=== PATIENT | female | born 1950 | race Caucasian/White ===

== ENCOUNTER → 2024-02-26 06:27 | Day surgery (SDC) | payer OTHER, SELFPAY | LOC: GI 06:27 | PROVIDERS: ATTENDING PHYSICIAN Specialist | DX: Z12.11 Encounter for screening for malignant neoplasm of colon (principal); Z86.010 Personal history of colon polyps; K57.30 Diverticulosis of large intestine without perforation or abscess without bleeding; K55.20 Angiodysplasia of colon without hemorrhage; K74.60 Unspecified cirrhosis of liver; D12.5 Benign neoplasm of sigmoid colon; Z80.0 Family history of malignant neoplasm of digestive organs; Z98.0 Intestinal bypass and anastomosis status | CPT/HCPCS: 45380; 43235; 88305 ==

== ENCOUNTER → 2024-03-11 19:00 | Outpatient (REF) | payer OTHER, SELFPAY | LOC: MRI 3T 19:00 | PROVIDERS: ATTENDING PHYSICIAN Specialist; FAMILY PHYSICIAN Physician Assistant | DX: K74.60 Unspecified cirrhosis of liver (principal) | CPT/HCPCS: 74183; A9581 ==

== ENCOUNTER → 2024-04-02 10:51 | Outpatient (REF) | payer OTHER, SELFPAY | LOC: WDC 10:51 | PROVIDERS: ATTENDING PHYSICIAN Physician Assistant | DX: Z12.31 Encounter for screening mammogram for malignant neoplasm of breast (principal) | CPT/HCPCS: 77063; 77067 ==

== ENCOUNTER 2025-01-01 09:13 | Inpatient (IN) | payer OTHER, SELFPAY ==
[2025-01-01 03:54] VITALS: BP 143/125
[2025-01-01 03:56] VITALS: BP 143/125; BMI 33.7
[2025-01-01 04:33] LABS: % Basophils 0.3 % (0-2); % Immature Granulocytes 0.3 % (0-0.5); % Lymphocytes 13.4 % (20.5-51.1); % Monocytes 5.6 % (1.7-9.3); % Neutrophils 79.4 % (42.2-75.2); Absolute Eosinophils 0.1 10^3/uL (0-0.7); Absolute Lymphocytes 1.2 10^3/uL (1.2-3.4); Absolute Monocytes 0.5 10^3/uL (0.1-0.6); Absolute Neutrophils 7.2 10^3/uL (1.4-6.5); Hematocrit 45.6 % (37.0-47.0); Hemoglobin 15.6 g/dL (12.0-16.0); Mean Corp Hgb Conc. 34.2 g/dL (33.0-37.0); Mean Corpuscular Hgb 29.7 pg (27.0-31.0); Mean Corpuscular Volume 86.7 fL (81.0-99.0); Mean Platelet Volume 10.1 fL (7.4-10.4); Nucleated Red Blood Cells % 0 %; Platelet Count 127 10^3/uL (130-400); Red Blood Cell Count 5.26 10^6/uL (4.20-5.40); Red Cell Dist. Width 14.4 % (11.5-14.5); White Blood Cell Count 9.1 10^3/uL (4.8-10.8)
[2025-01-01 04:56] LABS: COVID-19 Antigen Negative (Negative)
[2025-01-01 04:59] LABS: ALT (SGPT) 19 U/L (0-35); AST (SGOT) 24 U/L (14-36); Albumin 4.4 g/dl (3.5-5.0); Alkaline Phosphatase 127 U/L (38-126); Blood Urea Nitrogen 15 mg/dl (7-17); Calcium 9.9 mg/dl (8.4-10.2); Carbon Dioxide 21 mmol/L (22-30); Chloride 107 mmol/L (98-107); Estimated Creatinine Clearance 60 ml/min; Glucose 138 mg/dl (70-99); Potassium 3.5 mmol/L (3.5-5.1); Sodium 140 mmol/L (135-145); Total Bilirubin 1.5 mg/dl (0.2-1.3); Total Protein 7.2 g/dl (6.3-8.2); eGFR > 60.00
[2025-01-01 05:01] VITALS: BP 181/72
[2025-01-01 06:00] VITALS: BP 171/56
[2025-01-01] MEDS: ZOFRAN 4 MG IV ×2 (06:29→13:42)
[2025-01-01] MEDS: NSS 1000 IV (06:29)
[2025-01-01] MEDS: TORADOL 15 MG IV ×2 (06:29→13:42)
--- NOTE | 2025-01-01 06:44 | ED.GENMED ---
History of Present Illness
General
Chief Complaint: Abdominal Pain
Source: patient and family
Exam Limitations: none
Time Seen by Provider: 01/01/25 05:51
History of Present Illness
History of Present Illness:
74-year-old female left-sided cramping with nausea and vomiting. Started about 5 days ago. Then seem to resolve and recur overnight. No dysuria or frequency no change in bowel movements no fever. Symptoms are minimal in nature at this time. No
one else is ill at home.
Past History
Past History
ED Past Medical History: Cancer (Skin and bladder CA), GERD, HTN, Hypercholesterolemia, NIDDM, Hypothyroidism and Other (Osteoarthritis, IBS, right hemicolectomy for polyps, CPAP for sleep apnea, Diverticulitis)
ED Past Surgical History: Bowel resection (Hemicolectomy), Cholecystectomy, Gynecological (Ovarian cyst, Total abd hysterectomy) and Urological
Social History
Tobacco: Former smoker
Alcohol: Former
Drug: None
Personal:
Living: with family
Employment: Retired
Family History
Family History: CAD and Other
Review of Systems
Review of Systems
All Other Systems: Not applicable
Constitutional: Denies fever or chills
Respiratory: Reports no symptoms
Cardiac: Reports no symptoms
Phy Exam
Physical Exam
Physical Exam:
GENERAL: Alert and oriented in no apparent distress
EYE: Orbits normal.
NECK: Supple, no significant adenopathy.
ENT: Pharynx without erythema
CARDIAC: Regular rate and rhythm without any obvious murmurs.
LUNGS: Clear breath sounds,normal
ABDOMEN: Soft, bowel sounds present. No distention. Vague mild left-sided tenderness not localized to the upper or lower quadrants. Hernia
NEUROLOGICAL: Alert and oriented , grossly non-focal
SKIN: Warm and dry, no rash or lesion, no discoloration, skin intact.
MUSCULOSKELETAL: No edema,no deformity.Good color
PSYCH: Normal and appropriate interaction.
Course
Orders/Labs/Results
Orders:
Orders
01/01/25 04:19
Complete Blood Count/With Diff Urgent
Comprehensive Metabolic Panel Urgent
Lipase Urgent
Comment: ADD ON
01/01/25 04:21
COVID-19 Antigen Urgent
Source: Nasal Swab
Influenza A+B Rapid Molecular Urgent
VANESSA Source: Nasal Swab
Specimen Description:
01/01/25 05:56
IV Insert/Care/Rem.- Treatment PRN
0.9% Sodium Chloride 500 ml [Nss] 500 ml IV BOLUS
Ondansetron Injectable [Zofran] 4 mg IV NOW STA
01/01/25 06:03
Add On- LAB Urgent
Tests Added?: lipase
IV Insert/Care/Rem.- Treatment PRN
0.9% Sodium Chloride 1000 ml [Nss] 1,000 ml IV BOLUS
Ketorolac [Toradol] 15 mg IV NOW STA
01/01/25 06:04
CT Abd/pel Without Iv Or Oral Urgent
Comment:
Reason For Exam: Sudden right lower quadrant/right flank pain
01/01/25 06:28
Urinalysis Reflex To Culture Urgent
Date Specimen was Collected: 01/01/25
Time Specimen was Collected: 06:23
Abnormal Lab Results
01/01/25
04:19
Plt Count 127 L 10^3/uL
(130-400)
Absolute Neuts (auto) 7.2 H 10^3/uL
(1.4-6.5)
Neutrophils % 79.4 H %
(42.2-75.2)
Lymphocytes % 13.4 L %
(20.5-51.1)
Carbon Dioxide 21 L mmol/L
(22-30)
Glucose 138 H mg/dl
(70-99)
Total Bilirubin 1.5 H mg/dl
(0.2-1.3)
Alkaline Phosphatase 127 H U/L
(38-126)
01/01/25 04:19
01/01/25 04:19
Vital Signs
Initial and Last Documented VS:
Initial Vital Signs
BP
143/125
01/01/25 03:54
Last Documented Vital Signs
Temp Pulse Resp BP Pulse Ox
98.5 F 62 12 171/56 97
01/01/25 03:56 01/01/25 06:00 01/01/25 06:00 01/01/25 06:00 01/01/25 06:00
MDM/Problems Addressed
Differential Diagnosis Includes:
Vague left-sided discomfort with nausea and vomiting. Differential would include enteritis, food poisoning, diverticulitis, kidney stone. Workup in progress.
*Radiology
Radiology exam reviewed: radiology read reviewed (Early SBO transition point)
*Pulse Oximetry
Patient hypoxic: no
*Critical Care Note
Total Time (30-74mins, 75-104mins- exclusive of procedures): Not Applicable
Data Reviewed
Review of Other/Old Records Reveals: Labs and Testing
Update Note
Update Note:
Patient will be admitted for early SBO. Hospitalist and general surgery contacted
ED Attending Note
-
Portions of this chart may have been created with voice recognition software.� Occasional wrong word or��sound alike� substitutions may have occurred due to the inherent limitations of voice recognition software.
Discharge Plan
Departure
Patient Disposition: Admit
Date of Disposition: 01/01/25
Time of Disposition: 07:12
Presentation/result/management discussed w/ accepting MD/DO: General surgery
Discharge Problem:
SBO
Prescriptions:
No Action
rosuvastatin 5 MG tablet
5 mg PO QPM
amlodipine 5 mg tablet
5 mg PO DAILY
levothyroxine 88 mcg tablet
88 mcg PO DAILY
losartan 100 mg tablet
100 mg PO DAILY
ondansetron 4 mg tablet,disintegrating
4 mg PO Q8H PRN (Reason: nausea/vomiting)
acetaminophen 500 mg Tablet
1,000 mg PO Q6H PRN (Reason: mild pain)
fluoxetine 40 mg Capsule
40 mg PO DAILY
Referrals:
UNKNOWN - PT DOES,NOT KNOW [Family Provider] -
Interventions
Interventions:
*Risk Screen - Suicide Last Done: 01/01/25 03:56
*General Assessment Last Done: 01/01/25 03:56
*Neglect/Abuse Screening Last Done: 01/01/25 03:56
*ED COVID-19 Vaccine History Last Done: 01/01/25 04:10
JG-Bqqnfx-Twqlakcyka Assessment Last Done: 01/01/25 04:11
Discharge Date and Time
Print Language: YI
[2025-01-01 07:36] LABS: Lipase 145 U/L (23-300)
[2025-01-01 07:45] LABS: Urine Albumin 2+ (Neg - Trace); Urine Bilirubin Negative (Negative); Urine Character Clear (Clear); Urine Color Yellow; Urine Glucose Negative (Negative); Urine Ketone Negative (Negative); Urine Leukocyte Negative (Negative); Urine Nitrite Negative (Negative); Urine Occult Blood Negative (Negative); Urine Specific Gravity 1.015 (<1.030); Urine Urobilinogen 1+ (Neg - 1+)
[2025-01-01 08:11] LABS: Urine Urothelial Cell 0-2 /LPF (FEW)
[2025-01-01 08:12] LABS: Urine Bacteria Few (Negative); Urine Red Blood Cell 0-2 /HPF (0-2)
--- NOTE | 2025-01-01 09:00 | HPS.HSE ---
Addendum entered and electronically signed by Harsh Gibson MD 01/01/25 21:53:
Attending Addendum-
I performed a history and physical exam of the patient and discussed his management with the resident. I reviewed the resident's note and agree with the documented findings and plan of care CC/HPI- Came to ED secondary to N/V and abdominal pain.
Doesn't remember when she passed gas. States her last BM was possibly loose and may have had some blood 'a couple days ago.' Seen with ALICIA Rubin. Patient is pleasant but history provided is variable. Complains of LUQ abd pain non radiating. No urinary
sxs. No fevers chills No N/V. Full 12 point ROS reviewed and negative except as documented Exam- vitals reviewed in EMR GEN-NAD Heart RRR no M/R/G lungs clear abd distended high pitched BS TTP LUQ no rebound or guarding LE no edema Neuro AAO x 3
Plan:
# SBO
- h/o MAXWELL and right hemicolectomy
- c/s surgery
- NPO, start IVF
- NG tube for decompression if needed
- CT 01/01-multiple prominent loops of bowel within the right abdomen with adjacent mesenteric stranding and an apparent transition point. early/partial bowel obstruction.
Cirrhosis with small volume perihepatic free fluid. There is splenomegaly with collateral vessels in the right hemiabdomen consistent with portal hypertension.
- repeat BMP in am
# HTN- cont amlodipine and losartan
# BALTAZAR- cont CPAP
# Hypothyroidism- cont levothyroxine
# HLD- cont crestor
# Depression- cont fluoxetine
Dispo-From [facility]
Code DNR
ACP
Patient consented to discuss, was with ALICIA Rubin, time spent explanation of advance directives, changes in health status, patient�s health care wishes if the patient becomes unable to make health decisions, goals of care, code status, and prognosis-
16 minutes
Time spent coordinating care, review of plan of care with resident, personally reviewed previous records in EMR, med rec, labs, radiology, d/w nursing, family total time documented is exclusive of any additional time listed that was spent in advance
care planning discussion -�75 minutes
Original Note:
Family Physician
-
Family Physician: JAIR Tom
Chief Complaint
-
Abdominal cramps and vomiting
History of Present Illness
Patient is a 74-year-old female who lives independently in [place]. Reports having painful cramps in left lower quadrant on Sunday followed by a forceful vomiting. Reports that she could see blood in the vomit which she said looks like corcoran
tomatoes. Granddaughter, Caryn, mentions she typically does not have a good appetite but on Sunday she had been hearing more than she would usually. Food was prepared at her living center and was not from outside. Patient symptoms improved over
the next couple days however last night she started experiencing the painful left lower quadrant cramps again and was also vomiting (this time not bloody) also reports about 3-4 times of normal consistency normal volume bowel movements yesterday.
Stool was not bloody or black. Mentions does not remember when was the last time she passed gas but it must be a couple days. Denies any fevers. Denies being constipated before symptoms started.
Mentions chronic dysuria due to recurrent UTIs. On arrival, vital signs were stable. No leukocytosis. electrolytes normal. COVID-negative. Prelim report of abdominal CAT scan shows signs of early small bowel obstruction.
He does have a history of right hemicolectomy in 2000 and also prior total hysterectomy (more than 20 years ago).
Has a history of bladder cancer status post chemo (last chemo being about 3 years ago).
Medical History
Past Medical History
Past Medical History: Reports Cancer (Skin and bladder, flat colon Adenoma), GERD, HTN, Hypercholesterolemia, Hypothyroidism and NIDDM
Additional Past Medical History:
Cirrhosis / LANE
BALTAZAR on CPAP
Functional Diarrhea
Past Surgical History: Reports Bowel Resection (Right hemicolectomy), Cholecystectomy, Gynocological (Total hysterectomy) and Orthopedic (Lumbar laminectomy)
Social History
Tobacco: Former Smoker
Alcohol: Former
Drug: None
Personal:
Living: Alone (At [place])
Employment: Retired
Family History
Family History: CAD and Other (Colon cancer)
Allergies / Home Medications
Allergies reflects when Allergies were last updated in [employer].
Home Medications with original date entered in [employer]
Allergy/Medication List:
Allergies
Allergy/AdvReac Type Severity Reaction Status Date / Time
desipramine Allergy chest Verified 01/23/23 20:12
pain,sweats,shakes
gabapentin Allergy balance Verified 01/23/23 20:12
issues/dizziness
oxycodone Allergy itching,insomnia,out Verified 01/23/23 20:12
of body
feeling
propoxyphene Allergy Itching Verified 01/23/23 20:12
Home Medications
rosuvastatin 5 mg tablet 5 mg PO QPM High cholesterol 10/02/19
acetaminophen 500 mg tablet 1,000 mg PO Q6H PRN mild pain 01/23/23
amlodipine 5 mg tablet 5 mg PO DAILY Blood pressure 01/23/23
levothyroxine 88 mcg tablet 88 mcg PO DAILY Thyroid 01/23/23
losartan 100 mg tablet 100 mg PO DAILY Blood pressure 01/23/23
ondansetron 4 mg disintegrating tablet 4 mg PO Q8H PRN nausea/vomiting 01/23/23
fluoxetine 40 mg capsule 40 mg PO DAILY 01/01/25
Review of Systems
-
History Source: Patient
A 12 point ROS was completed and negative except as noted: Yes
Constitutional: Reports See HPI
EENT: Reports See HPI
Respiratory: Reports See HPI
Cardiac: Reports See HPI
Abdomen/GI: Reports See HPI
: Reports See HPI
Musculoskeletal: Reports See HPI
Neurological: Reports See HPI
Psych: Reports No Symptoms
Physical Exam
Vital Signs
Vital Signs
Temp Pulse Resp BP Pulse Ox
98.5 F 60 11 171/56 94
01/01/25 03:56 01/01/25 07:00 01/01/25 07:00 01/01/25 06:00 01/01/25 07:00
Physical Exam
General: Well Developed, No Apparent Distress and Conversant
HEENT: Moist mucous membranes
Respiratory: Clear
Cardiac: S1/S2 and Regular Rhythm
GI: Soft, Tender (Mild left lower quadrant tenderness, no rebound, no guarding), Distended (Mildly distended) and Other (Hypoactive bowel sounds, scar from prior hysterectomy and hemicolectomy)
Musculoskeletal: No Clubbing, No Cyanosis and No Edema
Skin: Warm and Dry
Neuro: Awake, Alert, Oriented and AO x 3
Psych: Calm
Laboratory Results
-
01/01/25 04:19
01/01/25 04:19
Laboratory Results
Total Bilirubin 1.5 mg/dl (0.2-1.3) H 01/01/25 04:19
AST 24 U/L (14-36) 01/01/25 04:19
ALT 19 U/L (0-35) 01/01/25 04:19
Alkaline Phosphatase 127 U/L (38-126) H 01/01/25 04:19
Lipase 145 U/L (23-300) 01/01/25 04:19
Impression/Plan
-
74yo F with PSH of total hysterectomy and right hemicolectomy (2000), who presents with nausea/vomiting/ abdominal cramps. CT suggest small bowel obstruction.
#Small bowel obstruction
NPO
Zofran as needed
Toradol PRN for pain
Monitor CBC, BMP
Monitor vitals signs
Watch for worsening of abdominal pain or any guarding
Ringer lactate @120cc/hr
No need for antibiotics at this time
General Surgery consulted
#BALTAZAR requiring home CPAP
Patient's son will bring home CPAP machine later in the day
#Essential HTN
Cont home amlodipine
#Diet-controlled Diabetes
NPO for now
Carb-controlled once PO
Accuchecks
#Hypercholesterolemia
Cont home rosuvastatin
#Hypothyroidism
Cont Levothyroxine
#Anxiety/Depression
Cont home fluoxetine
#DVT prophylaxis:
Lovenox 40
CODE Status
DNR
[2025-01-01] MEDS: LR 1000 IV ×2 (13:42→22:15)
--- NOTE | 2025-01-01 15:21 | CON.GS ---
Medical History
-
Chief Complaint: Abdominal pain, nausea, emesis
History of Present Illness:
Patient is a 74 yo F with a PMH of depression/anxiety, hypothyroidism, HTN, HLD, obesity, BALTAZAR, cirrhosis (follows with Dr. Bedoya), s/p laparoscopic cholecystectomy, s/p open RIGHT hemicolectomy, and s/p open MAXWELL with BLSO. Ms. Camarillo states that on
Sunday she developed severe abdominal pain with associated nausea, vomiting, and diarrhea. Her symptoms have waxed and waned over the past week, however, recurred over the past 24 hours prompting presentation to the ED. She last passed flatus and
had a bowel movement yesterday. Her last episode of emesis was yesterday. Currently she denies any nausea. Currently she states that her abdominal pain is somewhat improved though not resolved. She denies any prior episodes or issues as a
relates to bowel obstructions. No fevers or chills.
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 She denies any prior issues with ascites or esophageal varices. Patient
Past Medical History
Past Medical History: Cancer (Skin and bladder), GERD, HTN, Hypercholesterolemia, Hypothyroidism, NIDDM and Psychiatric (Depression/anxiety)
Past Surgical History: Bowel Resection (RIGHT colectomy), Cholecystectomy and Gynecological (MAXWELL, BLSO)
Social History
Tobacco: Non-Smoker
Alcohol: Former
Drug: None
Living: With Family
Employment: Retired
Family History
Family History: Reviewed & Not Pertinent
Allergies / Home Medications
Allergy/AdvReac Type Severity Reaction Status Date / Time
desipramine Allergy chest Verified 01/23/23 20:12
pain,sweats,shakes
gabapentin Allergy balance Verified 01/23/23 20:12
issues/dizziness
oxycodone Allergy itching,insomnia,out Verified 01/23/23 20:12
of body
feeling
propoxyphene Allergy Itching Verified 01/23/23 20:12
�Medication �Instructions �Recorded �Confirmed �Type
rosuvastatin 5 mg tablet 5 mg PO QPM High cholesterol 10/02/19 01/01/25 History
acetaminophen 500 mg tablet 1,000 mg PO Q6H PRN mild pain 01/23/23 01/01/25 History
amlodipine 5 mg tablet 5 mg PO DAILY Blood pressure 01/23/23 01/01/25 History
levothyroxine 88 mcg tablet 88 mcg PO DAILY Thyroid 01/23/23 01/01/25 History
losartan 100 mg tablet 100 mg PO DAILY Blood pressure 01/23/23 01/01/25 History
ondansetron 4 mg disintegrating 4 mg PO Q8H PRN nausea/vomiting 01/23/23 01/01/25 History
tablet
fluoxetine 40 mg capsule 40 mg PO DAILY Mental Health 01/01/25 01/01/25 History
Review of Systems
-
A 10 point review of systems was completed, and was negative except as per HPI.
Physical Exam
Vital Signs
Temp Pulse Resp BP Pulse Ox
98.5 F 59 18 171/56 99
01/01/25 03:56 01/01/25 14:00 01/01/25 14:00 01/01/25 06:00 01/01/25 14:00
12/31/24 01/01/25 01/02/25
06:59 06:59 06:59
Actual Weight 91.8 kg
Body Mass Index (BMI) 33.7
Lab Results
01/01/25 04:19
01/01/25 04:19
WBC 9.1 10^3/uL (4.8-10.8) 01/01/25 04:19
Hgb 15.6 g/dL (12.0-16.0) 01/01/25 04:19
Hct 45.6 % (37.0-47.0) 01/01/25 04:19
Plt Count 127 10^3/uL (130-400) L 01/01/25 04:19
Abs Immat Gran (auto) 0.0 10^3/uL (0-0.05) 01/01/25 04:19
Neutrophils % 79.4 % (42.2-75.2) H 01/01/25 04:19
Physical Exam
General: Well Developed, Well Nourished and No Apparent Distress
Respiratory: Non Labored Respirations
Cardiac: Regular Rhythm
GI: Soft, Tender (RIGHT mid abdomen), Distended (Difficult to fully assess with obesity, mild tymapny), Obese and Other (Non-peritoneal)
Musculoskeletal: No Edema
Skin: Warm and Dry
Neuro: Nonfocal/Grossly Intact
Data Reviewed
-
CT Scan: Image Personally Visualized and interpreted and Report Reviewed by me
Labs: Labs Reviewed by me
Old Records: Reviewed
Assessment / Plan
-
Patient is a 74 yo F p/w SBO likely secondary to adhesions
The natural history and pathophysiology of bowel obstructions was reviewed. CT scan imaging was reviewed. No clinical or radiographic concern for bowel ischemia or perforation. No evidence of pneumatosis, significant bowel wall thickening, or
free air. Patient is at increased risk for operative complications given her cirrhosis and morbid obesity/underlying general medical condition. Recommend medical management with bowel rest and NGT decompression as needed for any further episodes
of nausea, vomiting, or worsening abdominal pain. Would consider contrasted study if no improvement over the next 24 to 48 hours. All questions answered.
-- NPO, IVF
-- NGT decompression if any further nausea or emesis
-- Consider SBFT tomorrow if symptoms not improved
-- OOB/ambulate, correct lytes, minimize narcotics
[2025-01-01 17:40] VITALS: BP 161/75
[2025-01-01 17:41] VITALS: BMI 32.8
[2025-01-01] MEDS: CRESTOR 5 MG PO (18:27)
[2025-01-01] MEDS: LOVENOX 40 MG SC (19:19)
[2025-01-01 23:36] VITALS: BP 168/70
[2025-01-02] MEDS: LR 1000 IV (06:15)
[2025-01-02] MEDS: SYNTHROID 88 MCG PO (06:19)
[2025-01-02 07:15] LABS: Hematocrit 38.5 % (37.0-47.0); Hemoglobin 12.8 g/dL (12.0-16.0); Mean Corp Hgb Conc. 33.2 g/dL (33.0-37.0); Mean Corpuscular Hgb 29.3 pg (27.0-31.0); Mean Corpuscular Volume 88.1 fL (81.0-99.0); Mean Platelet Volume 10.7 fL (7.4-10.4); Platelet Count 114 10^3/uL (130-400); Red Blood Cell Count 4.37 10^6/uL (4.20-5.40); Red Cell Dist. Width 14.3 % (11.5-14.5); White Blood Cell Count 6.8 10^3/uL (4.8-10.8)
[2025-01-02 07:16] LABS: % Basophils 0.7 % (0-2); % Eosinophils 1.2 % (0-6); % Immature Granulocytes 0.3 % (0-0.5); % Lymphocytes 27.6 % (20.5-51.1); % Monocytes 7.8 % (1.7-9.3); % Neutrophils 62.4 % (42.2-75.2); Absolute Basophils 0.1 10^3/uL (0-0.2); Absolute Eosinophils 0.1 10^3/uL (0-0.7); Absolute Lymphocytes 1.9 10^3/uL (1.2-3.4); Absolute Monocytes 0.5 10^3/uL (0.1-0.6); Absolute Neutrophils 4.3 10^3/uL (1.4-6.5); Nucleated Red Blood Cells % 0 %
[2025-01-02 07:24] LABS: ALT (SGPT) 18 U/L (0-35); AST (SGOT) 27 U/L (14-36); Albumin 3.4 g/dl (3.5-5.0); Alkaline Phosphatase 103 U/L (38-126); Blood Urea Nitrogen 14 mg/dl (7-17); Calcium 8.9 mg/dl (8.4-10.2); Carbon Dioxide 24 mmol/L (22-30); Chloride 108 mmol/L (98-107); Estimated Creatinine Clearance 53 ml/min; Glucose 99 mg/dl (70-99); Magnesium 2.1 mg/dl (1.6-2.3); Potassium 3.5 mmol/L (3.5-5.1); Sodium 138 mmol/L (135-145); Total Bilirubin 1.5 mg/dl (0.2-1.3); Total Protein 5.7 g/dl (6.3-8.2); eGFR 58.39
[2025-01-02 07:40] VITALS: BP 137/53
[2025-01-02] MEDS: PROZAC 40 MG PO (08:21)
[2025-01-02] MEDS: NORVASC 10 MG PO (08:23)
[2025-01-02] MEDS: COZAAR 100 MG PO (08:23)
--- NOTE | 2025-01-02 08:24 | W.PN.HOSP.TC ---
Addendum entered and electronically signed by Harsh Gibson MD 01/02/25 22:01:
Attending Addendum-
I performed a history and physical exam of the patient and discussed his management with the resident. I reviewed the resident's note and agree with the documented findings and plan of care Sub-passed gas and liquid stools. feels great. denies abd
pain N/V. Full 12 point ROS reviewed and negative except as documented Exam- vitals reviewed in EMR GEN-NAD Heart RRR no M/R/G lungs clear abd soft NT ND pos BS no rebound or guarding LE no edema Neuro AAO x 3
Plan:
# Adhesive partial SBO
- resolved
- h/o MAXWELL and right hemicolectomy
- surgery-input appreciated- ok for DC if manny PO
- CT 01/01-multiple prominent loops of bowel within the right abdomen with adjacent mesenteric stranding and an apparent transition point. early/partial bowel obstruction.
Cirrhosis with small volume perihepatic free fluid. There is splenomegaly with collateral vessels in the right hemiabdomen consistent with portal hypertension.
- manny clears advance diet and DC home if manny
# HTN- cont amlodipine and losartan
# BALTAZAR- cont CPAP
# Hypothyroidism- cont levothyroxine
# HLD- cont crestor
# Depression- cont fluoxetine
Dispo-From [facility]
Code DNR
Time spent coordinating care, DC planning, review of DC plan of care with resident, transition of care, review of records, med rec/scripts sent electronically, consults, notes, d/w consultants, nursing, family, and CM�33 mins
Original Note:
Today's Communication/Plan
-
Advance diet as tolerated
If she can tolerate regular diet, can be discharged later today
Assessment / Plan
Assessment / Plan
74yo F with PSH of total hysterectomy and right hemicolectomy (2000), who presents with nausea/vomiting/ abdominal cramps from 4 days before admission.
Abdominal/pelvis CT (01/02)
There are multiple prominent loops of bowel within the right abdomen with adjacent mesenteric stranding and an apparent transition point. Consolation of findings are favored to represent early/partial bowel obstruction.
Cirrhosis with small volume perihepatic free fluid. There is splenomegaly with collateral vessels in the right hemiabdomen consistent with portal hypertension.
#Small bowel obstruction
Currently on clear liquid-can advance diet as tolerated
Receiving LR @120cc/hr
No need for antibiotics at this time
Appreciate General Surgery-will continue to follow, ADAT
Zofran as needed-Toradol PRN for abdominal pain
Daily CBC, BMP
Encourage OOB
Patient is passing gas and has bowel movements -if able to tolerate regular diet, she can be discharged later today
#BALTAZAR requiring home CPAP
Well-managed with home CPAP
#Essential HTN
-Blood pressures on the higher side
-Will increase Norvasc to 10
#Diet-controlled Diabetes
Carb-controlled once on regular diet
Continue Accuchecks
#Hypercholesterolemia
Cont home rosuvastatin
#Hypothyroidism
Cont Levothyroxine
#Anxiety/Depression
Cont home fluoxetine
#DVT prophylaxis:
Lovenox 40
CODE Status
DNR
Anticipated Discharge: Today
Subjective/Interval History
-
Date of Service: January 02, 2025
Mentions had at least 3 large loose bowel movements during the past 24 hours. Denies any nausea or vomiting since admission. Is able to tolerate clear liquid.
Has been passing gas. Does not complain of any abdominal cramps/pain.
Objective Data
-
Labs:
Laboratory Results
01/02/25
06:14
WBC 6.8
Hgb 12.8
Hct 38.5
Plt Count 114 L
Sodium 138
Potassium 3.5
Chloride 108 H
Carbon Dioxide 24
BUN 14
Creatinine 1.0
Glucose 99
Calcium 8.9
Total Bilirubin 1.5 H
AST 27
ALT 18
Alkaline Phosphatase 103
Vital Signs:
Vital Signs
Temp Pulse Resp BP Pulse Ox
97.9 F 56 16 137/53 96
01/02/25 07:40 01/02/25 07:40 01/02/25 07:40 01/02/25 07:40 01/02/25 07:40
Review of Systems
-
History Source: Patient
Constitutional: Reports No Symptoms
EENT: Reports No Symptoms Reported
Respiratory: Reports No Symptoms
Cardiac: Reports No Symptoms
Abdomen/GI: Denies Abdominal Pain, Nausea or Vomiting
Genitourinary: Reports No Symptoms
Musculoskeletal: Reports No Symptoms
Skin: Reports No Symptoms
Neuro: Reports No Symptoms
Physical Exam
-
General: Well Developed, Well Nourished, No Apparent Distress, Comfortable, Conversant and Obese; Negative Respiratory Distress
HEENT: Normocephalic, Atraumatic, Nose Appears Normal and Ears Appear Normal; Negative Oxygen
Respiratory: Clear to Auscultation and Non Labored Respirations; Negative Accessory Resp Muscle Use
Cardiac: Regular Rhythm and S1/S2
GI: Soft, Nontender, Normal Bowel Sounds, Distended (Mild distension) and Other (No rebound, no guarding)
Genito-urinary: No Costovertebral Tender
Musculoskeletal: No Clubbing, No Cyanosis and No Edema
Skin: Warm and Dry
Neuro: Awake, Alert, Oriented and AO x 3
Psych: Calm and Intact Judgement/Insight
--- NOTE | 2025-01-02 09:49 | W.PN.GS2 ---
Addendum entered and electronically signed by Mario Quintanilla MD 01/02/25 14:27:
To clarify for CDI purposes this is most likely an adhesive partial small bowel obstruction
Original Note:
Today's Communication / Plan
-
Clears, advance diet as tolerated.
Assessment / Plan
-
This is a 74-year-old female with a history of obesity, laparoscopic cholecystectomy, open right hemicolectomy, open total abdominal hysterectomy who presented to our hospital [facility] with abdominal pain, nausea, vomiting found to have a early small
bowel obstruction on CT likely adhesive. Thankfully, this morning she reports return of bowel function and symptomatic improvement of her abdominal pain.
Okay to start clears, advance diet as tolerated.
General surgery will continue to follow
Time Spent
Total Time Spent with Patient (in minutes): 20
Subjective Data
-
Date of Service: January 02, 2025
Interval Events:
No acute events overnight. Slept well. Pain Controlled. Denies Nausea/Vomiting, +bowel function. Tolerating diet.
Objective Data
-
Intake and Output
01/01/25 01/02/25 01/03/25
06:59 06:59 06:59
Other:
Number of approximated MODERATE 2
amounts of urine
Number of unmeasured liquid
stools
Rectum 3
Vital Signs
Temp Pulse Resp BP Pulse Ox
97.9 F 56 16 137/53 97
01/02/25 07:40 01/02/25 07:40 01/02/25 07:40 01/02/25 07:40 01/02/25 07:44
Lab Results
01/02/25 06:14
01/02/25 06:14
Calcium 8.9 mg/dl (8.4-10.2) 01/02/25 06:14
Magnesium 2.1 mg/dl (1.6-2.3) 01/02/25 06:14
Total Bilirubin 1.5 mg/dl (0.2-1.3) H 01/02/25 06:14
AST 27 U/L (14-36) 01/02/25 06:14
ALT 18 U/L (0-35) 01/02/25 06:14
Alkaline Phosphatase 103 U/L (38-126) 01/02/25 06:14
Total Protein 5.7 g/dl (6.3-8.2) L D 01/02/25 06:14
Albumin 3.4 g/dl (3.5-5.0) L 01/02/25 06:14
Physical Exam
-
GENERAL/NEURO: Awake, Alert, no distress
CHEST: Unlabored breathing on RA
ABDOMEN: Soft, Non-Tender, Non-Distended
Patient has a anthony catheter: No
Patient has a central line: No
--- NOTE | 2025-01-02 11:28 | CM ---
CM reviewed chart, patient seen bedside with sonYuri (POA), initial assessment completed. Patient resides independently at [facility], denies use of DME. Patient reports VN in past, cannot remember with who, denies SNF. Patient reports she no
longer uses CPAP at night. Patient confirms PCP Diana Adams, pharmacy [facility], confirms prescription coverage. Per General Surgery, advance diet as tolerated. CM will continue to follow for all discharge planning needs.
Plan; home no needs likely.
--- NOTE | 2025-01-02 12:49 | PN.CDI ---
CDI
- -
CDI:
Physician Documentation Request
Admit Date: 01/01/25 09:13
Dear Doctor Dwight,
Please review the following and provide your response in the progress notes.
Clinical Indicators:
CT Abdomen/Pelvis, 01/01
#IMPRESSION:
#...multiple prominent loops of bowel within the right abdomen with
#...adjacent mesenteric stranding and an apparent transition point.
#...Consolation of findings are favored to represent early/partial bowel obstruction.
PN, 01/02
#...early small bowel obstruction on CT likely adhesive.
Based on the above and your clinical assessment, please clarify the specificity of the small bowel obstruction:
Intestinal adhesions with partial obstruction
Intestinal adhesions unspecified as to partial vs. complete obstruction
Other(please specify)
Use of terms such as suspected, likely, concern for, or probable (associated with a specific diagnosis that is being evaluated, monitored, or treated as if it exists) are acceptable and can be coded in the inpatient setting, when documented at the
time of discharge.
Thank you,
Priyanka Tapia RN BSN CCDS
CDI Specialist
please contact via tiger text
Please use your independent medical judgment in providing your response.
--- NOTE | 2025-01-02 15:04 | PTOTSP ---
Patient independent with all transfers and ambulation. No skilled PT needs, will sign off.
[2025-01-02 16:13] VITALS: BP 153/73
--- NOTE | 2025-01-02 17:10 | PTCARENOTE ---
Pt tolerated advance diet. No sign of pain or nausea. Passing gas. Completing laps around the unit. Discharge order written. Instructions reviewed with patient with son at bedside. No further questions. IV site removed. Pt escorted to son's car by
wheelchair.
--- NOTE | 2025-01-03 12:28 | W.DCSUMMARY ---
Addendum entered and electronically signed by Harsh Gibson MD 01/05/25 09:58:
Read, reviewed, and agree. See same day progress note for additional details.
Joseluis Gibson MD
Original Note:
Documented by User: Abraham Christie MD, Resident 01/05/25 08:14
Discharge Summary
Discharge Data
Date of Admission: 01/01/25
Date of Discharge: 01/02/25
-
Pending Results: No
Hospital Course
Discharging Physician : Dr. Gibson
Disposition : [facility]
Primary care physician : YNES Tom
Principal Discharge diagnosis : Small bowel obstruction, Essential HTN
Chronic Discharge diagnosis : Diet-controlled DMII, Hypercholesterolemia, Hypothyroidism, Anxiety/Depression, BALTAZAR requiring home CPAP
Hospital Course :
Patient is a 74-year-old female from [facility] who was brought to ED by her granddaughter. She reported painful cramps in left lower quadrant from about 5 days prior to admission followed by forceful vomiting after her evening
meal. Patient's symptoms improved over the next couple days; however, she started experiencing painful left lower quadrant cramps again along with nausea, and vomiting (x3-4 times) in the morning before admission. Did not remember the last time she
had passed gas. On arrival, vital signs were stable. No leukocytosis. Electrolytes were normal. No rebound or guarding on exam. Patient was admitted for further evaluation after abd/pelvis CT suggested early SBO.
1. Adhesive partial SBO
Patient has a history of right hemicolectomy and prior total hysterectomy. CT showed multiple prominent loops of bowel within the right abdomen with adjacent mesenteric stranding and an apparent transition point suggesting early/partial bowel
obstruction. She was made NPO and IV fluid therapy was started. General surgery was consulted and followed daily. Within first day of admission, patients symptoms resolved with medical management. Her diet was gradually advanced from clears to
regular and she was able to tolerate diet. She reported being able to pass gas before discharge.
2. Essential HTN
Patient's blood pressure was on the higher side on arrival and during admission. Norvasc was increased from 5 to 10 for better BP management.
3. Other chronic conditions were well-managed with the same medications as prior to admission.
Important imaging findings :
CT Abd/pel Without Iv Or Oral (01/01):
There are multiple prominent loops of bowel within the right abdomen with adjacent mesenteric stranding and an apparent transition point. Consolation of findings are favored to represent early/partial bowel obstruction.
Cirrhosis with small volume perihepatic free fluid. There is splenomegaly with collateral vessels in the right hemiabdomen consistent with portal hypertension.
Discharge Plan
-
Patient Disposition: Home (Routine Discharge)
Discharge Diagnosis/Procedures: Small bowel obstruction, essential HTN
Condition: Good
Diet: As tolerated and Diabetic, Carb Controlled
Activity: No restrictions
Driving Restrictions: As prior to admission
Bathing Restrictions: None
Instructions: Small bowel obstruction
Referrals:
Diana Adams PA-C [Non-Admitting Privileges] - in less than 1 week
UNKNOWN - PT DOES,NOT KNOW [Family Provider] -
Prescriptions:
New
amlodipine 10 mg Tablet
10 mg PO DAILY 14 Days Qty: 14 0RF
Continued
rosuvastatin 5 MG tablet
5 mg PO QPM
levothyroxine 88 mcg tablet
88 mcg PO DAILY
losartan 100 mg tablet
100 mg PO DAILY
ondansetron 4 mg tablet,disintegrating
4 mg PO Q8H PRN (Reason: nausea/vomiting)
acetaminophen 500 mg Tablet
1,000 mg PO Q6H PRN (Reason: mild pain)
fluoxetine 40 mg Capsule
40 mg PO DAILY
Discontinued
amlodipine 5 mg tablet
5 mg PO DAILY
Discharge Orders:
Discharge Patient (As Directed); Ordered 01/02/25
Ordered By: Abraham Christie
Discharge Date and Time
Discharge Date/Time: 01/02/25 17:03
Print Language: CHILEAN

Documented by User: Harsh Gibson MD 01/05/25 09:57
Discharge Summary
Discharge Data
Date of Admission: 01/01/25
Date of Discharge: 01/05/25
Discharge Plan
-
Patient Disposition: Home (Routine Discharge)
Discharge Diagnosis/Procedures: Small bowel obstruction, essential HTN
Condition: Good
Diet: As tolerated and Diabetic, Carb Controlled
Activity: No restrictions
Driving Restrictions: As prior to admission
Bathing Restrictions: None
Instructions: Small bowel obstruction
Referrals:
Diana Adams PA-C [Non-Admitting Privileges] - in less than 1 week
UNKNOWN - PT DOES,NOT KNOW [Family Provider] -
Prescriptions:
New
amlodipine 10 mg Tablet
10 mg PO DAILY 14 Days Qty: 14 0RF
Continued
rosuvastatin 5 MG tablet
5 mg PO QPM
levothyroxine 88 mcg tablet
88 mcg PO DAILY
losartan 100 mg tablet
100 mg PO DAILY
ondansetron 4 mg tablet,disintegrating
4 mg PO Q8H PRN (Reason: nausea/vomiting)
acetaminophen 500 mg Tablet
1,000 mg PO Q6H PRN (Reason: mild pain)
fluoxetine 40 mg Capsule
40 mg PO DAILY
Discontinued
amlodipine 5 mg tablet
5 mg PO DAILY
Discharge Orders:
Discharge Patient (As Directed); Ordered 01/02/25
Ordered By: Abraham Christie
Discharge Date and Time
Discharge Date/Time: 01/02/25 17:03
Print Language: CHILEAN
== END 2025-01-02 17:03 | disposition home or self-care (01) | DRG 389 ==
LOC: 4 WEST ACU 09:13
PROVIDERS: Emergency Medicine; ADMITTING PHYSICIAN Family Medicine; EMERGENCY PHYSICIAN Emergency Medicine; OTHER PHYSICIAN Surgery
DX: K56.600 Partial intestinal obstruction, unspecified as to cause (principal); K76.6 Portal hypertension; I10 Essential (primary) hypertension; G47.33 Obstructive sleep apnea (adult) (pediatric); E03.9 Hypothyroidism, unspecified; F32.A Depression, unspecified; E11.9 Type 2 diabetes mellitus without complications; E78.00 Pure hypercholesterolemia, unspecified; F41.9 Anxiety disorder, unspecified; K74.60 Unspecified cirrhosis of liver; Z66 Do not resuscitate; Z87.891 Personal history of nicotine dependence; Z11.52 Encounter for screening for COVID-19; Z79.899 Other long term (current) drug therapy
CPT/HCPCS: 74176; 80053; 81003; 81015; 83690; 83735; 85025; 87502; 87811; 96374; 96375; 97161; 99285

== ENCOUNTER → 2025-01-24 09:26 | Outpatient (REF) | payer OTHER, SELFPAY | LOC: MRI 3T 09:26 | PROVIDERS: ATTENDING PHYSICIAN Physician Assistant Medical; FAMILY PHYSICIAN Internal Medicine | DX: F07.81 Postconcussional syndrome (principal) | CPT/HCPCS: 70551 ==

== ENCOUNTER → 2025-03-12 09:18 | Outpatient (REF) | payer OTHER, SELFPAY ==
[2025-03-12 13:20] LABS: Vitamin B12 319 pg/ml (239-931)
== END ==
LOC: OLABWIL 09:18
PROVIDERS: ATTENDING PHYSICIAN Physician Assistant Medical
DX: R41.89 Other symptoms and signs involving cognitive functions and awareness (principal)
CPT/HCPCS: 36415; 82607

== ENCOUNTER → 2025-04-06 11:35 | Outpatient (REF) | payer OTHER, SELFPAY | LOC: WDC 11:35 | PROVIDERS: ATTENDING PHYSICIAN Physician Assistant | DX: Z12.31 Encounter for screening mammogram for malignant neoplasm of breast (principal) | CPT/HCPCS: 77063; 77067 ==

== ENCOUNTER 2025-04-10 07:42 | Outpatient (RCR) | payer OTHER, SELFPAY | END 2025-04-10 23:59 | disposition home or self-care (01) | LOC: ROT 07:42 | PROVIDERS: ATTENDING PHYSICIAN Physician Assistant Surgical; FAMILY PHYSICIAN Physician Assistant | DX: S62.305B Unspecified fracture of fourth metacarpal bone, left hand, initial encounter for open fracture (principal); Z73.6 Limitation of activities due to disability | CPT/HCPCS: 97018; 97110; 97140; 97166; 97535 ==

== ENCOUNTER 2025-05-12 14:10 | Outpatient (RCR) | payer OTHER, SELFPAY | END 2025-05-12 23:59 | disposition home or self-care (01) | LOC: RPT 14:10 | PROVIDERS: ATTENDING PHYSICIAN Physician Assistant Surgical; FAMILY PHYSICIAN Physician Assistant | DX: S62.305D Unspecified fracture of fourth metacarpal bone, left hand, subsequent encounter for fracture with routine healing (principal); Z73.6 Limitation of activities due to disability; M54.41 Lumbago with sciatica, right side; M25.551 Pain in right hip; M25.552 Pain in left hip; M62.81 Muscle weakness (generalized) | CPT/HCPCS: 97018; 97110; 97140; 97161 ==

== ENCOUNTER 2025-06-02 15:52 | Outpatient (RCR) | payer OTHER, SELFPAY | END 2025-06-02 23:59 | disposition home or self-care (01) | LOC: RPT 15:52 | PROVIDERS: ATTENDING PHYSICIAN Physician Assistant Surgical; FAMILY PHYSICIAN Physician Assistant | DX: S62.305D Unspecified fracture of fourth metacarpal bone, left hand, subsequent encounter for fracture with routine healing (principal); Z73.6 Limitation of activities due to disability; M54.41 Lumbago with sciatica, right side; M25.551 Pain in right hip; M25.552 Pain in left hip; M62.81 Muscle weakness (generalized) | CPT/HCPCS: 97010; 97110; 97112 ==

== ENCOUNTER → 2025-09-10 16:11 | Outpatient (REF) | payer OTHER, SELFPAY | LOC: PAVMRI 16:11 | PROVIDERS: ATTENDING PHYSICIAN Orthopaedic Surgery; FAMILY PHYSICIAN Physician Assistant | DX: M54.16 Radiculopathy, lumbar region (principal) | CPT/HCPCS: 72148 ==